=== PATIENT | male | born 1995 | race Caucasian/White ===

== ENCOUNTER 2025-04-02 08:41 | Outpatient (AMB) | payer OTHER, SELFPAY ==
--- OUTSIDE RECORDS SUMMARY | 2025-04-02 08:43 | XMS_ITS | Clinical Summary ---
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) from Last 3 Months Immunizations Name Administration Dates Next Due Flucelvax Trivalent PFS IM; Without Preservative (18+ mos) 11/10/2018 Social History Tobacco Use Types Packs/Day Years Used Date Smoking Tobacco: Never Smokeless Tobacco: Never Tobacco Cessation:Counseling Given: Yes Sex and Gender Information Value Date Recorded Sex Assigned at Not on file Legal Sex Male 8:29 AM EST Gender Identity Not on file Sexual Orientation Not on file Last Filed Vital Signs Vital Sign Reading Time Taken Comments Blood Pressure 126/74 02/04/2025 11:31 AM EDT Pulse 79 02/04/2025 11:31 AM EDT Temperature 37.1 ??C (98.7 ??F) 02/04/2025 11:31 AM E DT Respiratory Rate 14 02/04/2025 11:31 AM EDT Oxygen Saturation 97% 02/04/2025 11:31 AM EDT Inhaled Oxygen Concentration - - Weight 76.7 kg (169 lb) 02/04/2025 11:31 AM EDT Height 185.4 cm (6' 1 ) 02/04/2025 11:31 AM EDT Body Mass Index 22.3 02/04/2025 11:31 AM EDT Plan of Treatment Health Maintenance Due Date Last Done Comments Depression: Screening Annual ly using PHQ-2/9 in Adults 18 yrs or above (or HM Modifier)([facility]) 2014 Hepatitis C Virus Infection in Adolescents and Adults: Screening (or Modifier) ([facility]) 2014 SDOH Screening Reminder: Kitty armenta for all adults ([facility]) 2014 DTaP/Tdap/Td Vaccines ([facility]) (1 - Tdap) 2015 COVID-19 Vaccine Screening: Initial Series and Booster Status ([facility]) ( - 2023- season) 2024 Flu Vaccination: Yearly for ages 18mos through 64 years (or Modifier)([facility]) 06/04/2025 11/10/2018 Zoster/Shingles Vaccine Seri es Screening: Adults aged 18+ yrs (or HM Modifiers)([facility]) (1 of 2) 2046 Pneumococcal Vaccination Screening: Pts 0-19 & 19-49 yrs of age ([facility]) Aged Out No longer eligible b ased on patient's age to complete this topic Medical Devices Not on file Procedures Procedure Name Priority Date/Time Associated Diagnosis Comments POCT URINALYSIS DIPSTICK Routine 02/04/2025 11:50 AM EDT 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 Hem. Large [facility] [id number] pH, UA 6.5 4.6 - 8.0 [facility] [id number] Protein, UA Negative [facility] [id number] Urobilinogen, UA Normal [facility] [id number] Nitrite, UA Negative [facility] [id number] Leukocytes, UA Negative [facility] TRY [id number] INTERNAL CONTROLS VALID Yes--Test working appropriately [facility] [id number] Expiration Date 01/01/2026 COVRANJITH [id number] Lot Number [id number] COVRANJITH [id number] TEST BRAND NAME _ UA Siemens Multistix 10SG [facility] [id number] Urine 02/04/2025 11:5 0 AM EDT us Angie Storey [employer] POINT OF CARE TEST ORDERABLE S Final Result CAR[facility] [id number] [address] [place] [address], from Last 3 Months Care Teams Guest Attendant Relationship Specialty Start Date End Date Deidre Telles MD [address] [address] PCP - General Family Medicine 11/10/18
--- NOTE | 2025-04-02 08:56 | A.OFFVIS_ITS ---
Vital Signs 04/02/25 09:03 Height 6 ft Weight 162 lb BMI 22.0 Intake Visit Reasons: f/u LT quadriceps injury Intake Note: Mynor is a 29 year old male who presents today for a new patient evaluation of his left quadriceps injury, DOI 03/29/25. Patient reports that he stepped weird and had felt a pop. He presented to [facility] the following day due to his pain, swelling and firmness in that area. An arnaldo wrap was applied to his leg and he was referred to orthopedics. Current he states his discomfort has improved since his injury. His pain is located at the anterior aspect of thigh. He has been out of work since his injury. Allergies No Known Allergies Allergy (Verified 04/02/25 09:02) Medication List - Last Reconciled 04/02/25 by Royal Lewis PA-C No Known Home Meds HPI HPI f/u LT quadriceps injury: Details: 29-year-old gentleman presents to the office today for an injury he sustained to his left quad on 03/29/2025 while playing disc golf. He states he was on an incline and as he stepped he felt a pop sensation in the mid thigh region. He had immediate pain. He was seen at the urgent care the following day where there was concern for a quad tendon injury and referred to our office for follow-up. He states since the injury he has been using Arnaldo wrap for compression and feels his symptoms have slightly improved. 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 He is able to perform range of motion full flexion and extension. There is no deficit along the distal kathleen where the tendon meets the patella. There is swelling over the muscle belly of the quad however no palpable defect. Assessment & Plan Assessment & Plan (1) Strain of quadriceps tendon: Code(s): S76.119A - Strain of unspecified quadriceps muscle, fascia and tendon, initial encounter Category: Medical Plan: Reassurance given there is no quad tendon rupture. I feel as though he has some partial tearing or straining of the muscle belly of the quad. I encouraged heat to help with hematoma. He should begin physical therapy to work on stretching and strengthening exercises as well. H can gradually increase activities as symptoms allow and if there is any concerns going forward he can contact our office. Otherwise he will follow up as needed. Orders: Orders PT Evaluation and Treatment Today S76.119A - Strain of unspecified quadriceps muscle, fascia and tendon, initial encounter Coding Level of Care Code New Pt Level 3 (09580) Complex EM visit Add On G2211 Diagnoses Strain of quadriceps tendon S76.119A
[2025-04-02 09:03] VITALS: BMI 22.0
== END 2025-04-02 09:23 | disposition home or self-care (01) ==
LOC: HO.HOS 08:41
PROVIDERS: PCP Family Medicine; Visit Provider Physician Assistant
DX: S76.112A Strain of left quadriceps muscle, fascia and tendon, initial encounter (principal)
CPT/HCPCS: 99203; G2211

== ENCOUNTER → 2025-04-02 08:41 | Outpatient (BNVA) | payer OTHER, SELFPAY | PROVIDERS: PCP Family Medicine; Visit Provider Physician Assistant | DX: S76.119A Strain of unspecified quadriceps muscle, fascia and tendon, initial encounter (principal) | CPT/HCPCS: 99202 ==